=== PATIENT | male | born 1930 | race Caucasian/White ===

== ENCOUNTER 2018-10-14 09:04 | Emergency (ER) | payer OTHER ==
[2018-10-14] MEDS ORDERED: CYCLOBENZAPRINE HCL 10 MG TABLET ONE (09:38)
== END 2018-10-14 11:17 | disposition home or self-care (01) ==
LOC: EDH 09:04
DX: G57.02 Lesion of sciatic nerve, left lower limb (principal); I10 Essential (primary) hypertension; Z96.643 Presence of artificial hip joint, bilateral
CPT/HCPCS: 73521

== ENCOUNTER 2021-10-19 05:51 | Day surgery (SDC) | payer OTHER ==
[2021-10-18 11:41] LABS: BASOPHILS % (AUTO) 0.6 % (0.0-5.0); EOSINOPHILS % (AUTO) 2.3 % (0.0-8.0); HEMATOCRIT 35.5 % (42-54); LYMPHOCYTES % (AUTO) 11.6 % (21.0-51.0); MEAN CORPUSCULAR HEMOGLOBIN 29.9 pg (27.0-33.0); MEAN CORPUSCULAR HGB CONC 31.5 g/dL (32.0-36.0); MEAN CORPUSCULAR VOLUME 94.9 fL (79-99); NEUTROPHILS % (AUTO) 75.2 % (40.0-77.0); PLATELET COUNT (AUTO) 87 K/uL (130-400); RED BLOOD CELL COUNT(AUTO) 3.74 MIL/uL (4.50-6.20); RED CELL DISTRIBUTION WIDTH 17.2 % (11.0-15.5); WHITE BLOOD COUNT (AUTO) 3.1 K/uL (4.8-10.8)
[2021-10-18 11:52] LABS: CREATININE 1.3 mg/dL (0.5-1.5)
[2021-10-18 11:54] LABS: INR 1.13 (0.85-1.15); PROTHROMBIN TIME 12.2 SEC (9.6-11.6)
[2021-10-18 11:56] LABS: PARTIAL THROMBOPLASTIN TIME 32.2 SEC (26.3-35.5)
[2021-10-18 13:05] VITALS: BP 126/73
[~2021-10-19] VITALS: Ht 162.6 cm; Wt 66.9 kg
[2021-10-19] VITALS (7 sets, daily range): BP systolic 130–157; BP diastolic 78–92
[~2021-10-19 05:51] MED LIST: APIX5TAB PO; BETA1TAB18 PO; BRIM5DRO4 OU; CARV6.25 PO; CEFAZOLIN SODIUM 2 GM VIAL IV SCH; CHOL200059 PO; CLOP75TA32 PO; DORZ10DR9 OU; DOXA8TAB81 PO; DRON400T7 PO; FINA5TAB41 PO; LATA7.5D OU; LOSA50TA64 PO; TOLT2TAB20 PO
[2021-10-19] MEDS ORDERED: 0.9%NACL 1000ML 1,000 ML IV ONE (07:13)
[2021-10-19] MEDS ORDERED: BUPIVACAINE/PF 0.25% 30ML VIAL IJ ONE (07:22)
[2021-10-19] MEDS ORDERED: IOHEXOL-350 50ML VIAL IV ONE (07:22)
[2021-10-19] MEDS ORDERED: CEFAZOLIN SODIUM 1 GM VIAL ONE (07:22)
[2021-10-19] MEDS ORDERED: MEPERIDINE-PF 50 MG/ML SYG ONE (07:23)
[2021-10-19] MEDS ORDERED: MIDAZOLAM HCL 1 MG/ML 2ML VIAL ONE (07:23)
[2021-10-19] MEDS ORDERED: LIDOCAINE HCL 1% MDV 50ML VIAL ONE (07:23)
[2021-10-19] MEDS ORDERED: LIDOCAINE HCL 2% VISCOUS 15 ML UDCUP ONE (08:52)
== END 2021-10-19 12:13 | disposition home or self-care (01) ==
LOC: DAH 05:51
PROVIDERS: ATTEND Internal Medicine Cardiovascular Disease
DX: I48.19 Other persistent atrial fibrillation (principal); I08.1 Rheumatic disorders of both mitral and tricuspid valves; I25.5 Ischemic cardiomyopathy; I11.0 Hypertensive heart disease with heart failure; I50.20 Unspecified systolic (congestive) heart failure; I44.2 Atrioventricular block, complete; E78.5 Hyperlipidemia, unspecified; Z79.01 Long term (current) use of anticoagulants; Z79.899 Other long term (current) drug therapy; Z95.5 Presence of coronary angioplasty implant and graft; Z95.0 Presence of cardiac pacemaker
CPT/HCPCS: 36415; 80048; 85025; 85610; 85730; 92960; 93005 ×2; 93312; 93325; A4215; A4216; A4221; A4222; A4223 ×3; A4606; A4663; J0690; J2175; J2250; J3490 ×2; J7030 ×2; 99156; 99157; Q9967